=== PATIENT | male | born 1985 | race Caucasian/White ===

== ENCOUNTER 2022-12-12 07:31 | Outpatient (CLI) | payer BC | END 2022-12-12 07:32 | disposition home or self-care (01) | LOC: BICULT 07:31 | PROVIDERS: ATTEND Family Medicine | DX: M54.41 Lumbago with sciatica, right side (principal); M54.42 Lumbago with sciatica, left side; R10.11 Right upper quadrant pain; R20.0 Anesthesia of skin; K76.0 Fatty (change of) liver, not elsewhere classified | CPT/HCPCS: 72100; 76705 ==

== ENCOUNTER 2023-09-16 08:25 | Emergency (ER) | payer BC | END 2023-09-16 08:47 | disposition home or self-care (01) | LOC: ERS 08:25 | DX: R04.0 Epistaxis (principal); I10 Essential (primary) hypertension | CPT/HCPCS: 99283 ==